=== PATIENT | male | born 1965 | race Caucasian/White ===

== ENCOUNTER 2018-07-30 08:04 | Emergency (ER) | payer BC, OTHER ==
[2018-07-30 08:19] VITALS: BP 136/96
--- NOTE | 2018-07-30 08:38 | UC ---
GI Bleed HPI - HPI Summary HPI Summary: rectal bleeding x 2 hrs sudden onset this morning, went to have BM this morning , suddenly felt something pooped in his rectal area with large amount of blood. denies any significant pain , still bleeding , history of hemorrhoid about a year ago, denies and fever, no chills, no abdominal pain no n/v/d/c, denies any fatigue , no lightheadedness - History Of Current Complaint Chief Complaint: UCGI Stated Complaint: RECTAL BLEED Time Seen by Provider: 07/30/18 08:15 Hx Obtained From: Patient Onset/Duration: Sudden Onset, Lasting Hours - 2, Still Present Timing: Constant Severity: Bright Red Blood per Rectum Severity Initially: Severe Severity Currently: Moderate Pain Intensity: 0 Associated Pain: None Character: Not Applicable Aggravating Factor(s): Bowel Movement Alleviating Factor(s): Other - none Associated Signs And Symptoms: Negative: Back Pain, Pallor, Dizziness, Weakness , Syncope, Constipation, Nausea, Rectal Pain, Bruising, Weight Loss, Recent Abnormal Coagulation Studies - Risk Factors GI Bleed Risk Factors: Hemorrhoid(s) - Allergies/Home medications Allergies/Adverse Reactions: Allergies Allergy/AdvReac Type Severity Reaction Status Date / Time morphine Allergy Vomiting Verified 07/30/18 08:16 Home Medications: Home Medications Acetaminophen TAB* [Tylenol TAB*] 650 mg PO Q4H PRN 07/30/18 [History Confirmed 07/30/18] PMH/Surg Hx/FS Hx/Imm Hx Previously Healthy: Yes Other History Of: Negative For: Anticoagulant Therapy - Surgical History Surgical History: Yes Surgery Procedure, Year, and Place: LITHOTRIPSY - Family History Known Family History: Negative: Diabetes - Social History Alcohol Use: None Substance Use Type: None Smoking Status (MU): Former Smoker Type: eCigarehazel Review of Systems All Other Systems Reviewed And Are Negative: Yes Constitutional: Positive: Negative Skin: Positive: Negative Is Patient Immunocompromised?: No Physical Exam Triage Information Reviewed: Yes Appearance: Well-Appearing, No Pain Distress, Well-Nourished Vital Signs: Initial Vital Signs Temp 99.0 F 07/30/18 08:09 Pulse 73 07/30/18 08:09 Resp 16 07/30/18 08:09 BP 136/96 07/30/18 08:09 Pulse Ox 98 07/30/18 08:09 Vital Signs Reviewed: Yes Eye Exam: Normal Eyes: Positive: Conjunctiva Clear ENT: Positive: Normal ENT inspection, Hearing grossly normal, Pharynx normal Neck: Positive: Supple, Nontender, No Lymphadenopathy Respiratory: Positive: Chest non-tender, Lungs clear, Normal breath sounds Cardiovascular: Positive: RRR, No Murmur, Pulses Normal Abdomen Description: Positive: Nontender, Soft Bowel Sounds: Positive: Present Musculoskeletal Exam: Normal Skin Exam: Normal UC Physical Exam Vital Signs On Initial Exam: Initial Vitals Temp Pulse Resp BP Pulse Ox 99.0 F 73 16 136/96 98 07/30/18 08:09 07/30/18 08:09 07/30/18 08:09 07/30/18 08:09 07/30/18 08:09 - Rectal Exam Rectal Exam: Non-tender, Bleeding, Hemorrhoids, Mass - rectal mass with large amount of blood, ? rectal prolaps / rectar ca, Other - no tenderness Bleed Course/Dx - Differential Dx/Diagnosis Provider Diagnosis: Rectal bleeding, Rectal mass Discharge - Sign-Out/Discharge Documenting (check all that apply): Patient Departure All imaging exams completed and their final reports reviewed: No Studies - Discharge Plan Condition: Stable Disposition: TRANS HIGHER LVL OF CARE FAC Patient Education Materials: Rectal Bleeding (ED), Rectal Prolapse (ED) Referrals: Partha Rothman MD [Primary Care Provider] - Additional Instructions: please go to [facility] ED for evaluation and tx - Billing Disposition and Condition Condition: STABLE Disposition: Trans Higher Lvl of Care Fac
== END 2018-07-30 08:35 | disposition short-term general hospital (02) ==
LOC: UCEAST 08:04
DX: K62.5 Hemorrhage of anus and rectum (principal); K62.89 Other specified diseases of anus and rectum; Z87.891 Personal history of nicotine dependence
CPT/HCPCS: 99212; G0463

== ENCOUNTER 2018-07-30 09:12 | Emergency (ER) | payer BC, OTHER ==
--- NOTE | 2018-07-30 09:32 | ED ---
GI/ HPI - HPI Summary HPI Summary: The patient is a 52 y/o M presenting to [facility] accompanied by partner with a chief complaint of sudden onset rectal bleeding and pressure this morning. He reports that he was getting ready for work this morning when he felt like he had to pass a BM. When he sat down, he felt a pressure as if something "popped, " and then he noticed bleeding from his rectum. The bleeding continued, and he presented to Urgent Care and was advised to come to the ED. In the ED, the rectum is still bleeding. The mild pain is currently rated 2/10 in severity. He additionally c/o dizziness and nausea that come in intermittent episodes. He denies abd pain. He notes that this occurred about two years ago, but there was less blood expelled, and the discomfort was different. He did not receive medical attention at that time. He states that he's had a few hemorrhoids that were not treated before. Hx of renal calculi. Surgical hx of lithotripsy. Former smoker, no EtOH, no substance use. - History of Current Complaint Chief Complaint: EDRectalPain Time Seen by Provider: 07/30/18 09:21 Stated Complaint: RECTAL BLEEDING RECTAL PROLAPSE, PER CC Hx Obtained From: Patient Onset/Duration: Started Hours Ago - this morning, Still Present Timing: Lasting Hours Severity: Mild Current Severity: Moderate Pain Intensity: 2 Location of Pain: Rectal Pain Characteristics: Pressure Associated Signs and Symptoms: Positive: Dizziness, Nausea, Rectal Pain. Negative: Abdominal Pain - Allergy/Home Medications Allergies/Adverse Reactions: Allergies Allergy/AdvReac Type Severity Reaction Status Date / Time morphine AdvReac Vomiting Verified 07/30/18 09:14 Home Medications: Home Medications NK [No Home Medications Reported] 07/30/18 [History Confirmed 07/30/18] PMH/Surg Hx/FS Hx/Imm Hx Endocrine/Hematology History: Denies: Hx Anticoagulant Therapy, Hx Diabetes Cardiovascular History: Denies: Hx Congestive Heart Failure, Hx Hypertension History: Reports: Hx Renal Disease - KIDNEY STONES - Surgical History Surgery Procedure, Year, and Place: LITHOTRIPSY Infectious Disease History: No Infectious Disease History: Denies: Traveled Outside the [place] in Last 30 Days - Family History Known Family History: Negative: Diabetes - Social History Alcohol Use: None Hx Substance Use: No Substance Use Type: Reports: None Hx Tobacco Use: Yes Smoking Status (MU): Former Smoker Type: eCigarettlaw Review of Systems Positive: Nausea, Other - rectal bleeding and pressure. Negative: Abdominal Pain Neurological: Other - dizziness All Other Systems Reviewed And Are Negative: Yes Physical Exam - Summary Physical Exam Summary: Appearance: Well-appearing, Well-nourished, lying in bed comfortably Skin: Warm, dry, no obvious rash Eyes: sclera anicteric, no conjunctival pallor ENT: mucous membranes moist, pharynx appears normal Neck: Supple, nontender Respiratory: Clear to auscultation, no signs of respiratory distress Cardiovascular: Normal S1, S2. No murmurs. Normal distal pulses in tibial and radial bilaterally. Abdomen: Soft, nontender, normal active bowel sounds present Musculoskeletal: Normal, Strength/ROM Intact Neurological: A&Ox3, awake and alert, mentation is normal, speech is fluent and appropriate Psychiatric: affect is normal, does not appear anxious or depressed Rectal Exam: A 3cm mass protruding from the rectum that is oozing blood is visualized. It does not appear to be a hemorrhoid or a rectal prolapse but is likely a tumor. Triage Information Reviewed: Yes Vital Signs On Initial Exam: Initial Vitals Temp Pulse Resp BP Pulse Ox 97.7 F 78 16 136/104 96 07/30/18 09:14 07/30/18 09:14 07/30/18 09:14 07/30/18 09:14 07/30/18 09:14 Vital Signs Reviewed: Yes Diagnostics - Vital Signs Vital Signs Temp Pulse Resp BP Pulse Ox 07/30/18 09:14 97.7 F 78 16 136/104 96 - Laboratory Result Diagrams: 07/30/18 09:37 07/30/18 09:37 Lab Statement: Any lab studies that have been ordered have been reviewed, and results considered in the medical decision making process. Re-Evaluation - Re-Evaluation First Eval Re-Evaluation Time: 10:48 Comment: I discussed the lab results with the patient. I also spoke with him concerning follow-up at Dr. Lima' office tomorrow as planned. GIGU Course/Dx - Course Course Of Treatment: The patient is a 52 y/o M presenting to [facility] accompanied by partner with a chief complaint of sudden onset rectal bleeding and pressure this morning after feeling like he had to have a BM, but heard a popping noise and felt rectal pressure upon sitting down. He then noticed racquel red blood that has been constantly present since onset. He additionally c/o dizziness and nausea that come in intermittent episodes. He denies abd pain. He notes that this occurred about two years ago with more mild symptoms but without medical treatment. Hx of hemorrhoids (untreated), renal calculi. Surgical hx of lithotripsy. Former smoker, no EtOH, no substance use. Upon physical exam, the patient exhibits a 3cm mass protruding from the rectum that is oozing blood and does not appear to be a hemorrhoid or rectal prolapse but is likely a tumor. Blood work reveals MCH of 32 and glucose of 113. I consulted with Dr. Lima, surgery, at 0933. He reports he will come see the patient in the ED. At 1040 in the ED, Dr. Lima notes that the patient would benefit most from a colonoscopy, and the mass found on the patient appears to be a polyp. He will see if his office can schedule the patient for an appointment. At 1047, Dr. Lima reports that the patient is scheduled for an appointment with his office tomorrow at 1130. The patient agrees with this plan and understands the need for return to the ED for any new or worsening symptoms. - Diagnoses Provider Diagnoses: Polyp of rectum - Physician Notifications Discussed Care Of Patient With: Brett Lima - surgery Time Discussed With Above Provider: 09:33 Instructed by Provider To: Other - I discussed the patient's case with Dr. Lima, and he agrees to see the patient in the ED after his case is finished. At 1040, Dr. Lima reports the patient has a polyp and needs a colonoscopy and removal of the polyp. He will see if he can schedule the patient for the exam. At 1047, Dr. Lima notes that his office was able to schedule the colonoscopy for tomorrow morning. Discharge - Sign-Out/Discharge Documenting (check all that apply): Patient Departure - Patient will be discharged home. Patient Received Moderate/Deep Sedation with Procedure: No - Discharge Plan Condition: Good Disposition: HOME Patient Education Materials: Colorectal Polyps (DC) Forms: *Work Release Referrals: Partha Rothman MD [Primary Care Provider] - Brett Lima MD [Medical Doctor] - 2 Days Additional Instructions: Dr. Lima is going to arrange for you to have a colonoscopy to have the polyp removed. The bleeding should stop over time today. Your blood work looked ok. RETURN TO THE EMERGENCY DEPARTMENT FOR ANY NEW OR WORSENING SYMPTOMS. - Billing Disposition and Condition Condition: GOOD Disposition: Home - Attestation Statements Document Initiated by Bala: Yes Documenting Scribe: Angelique Mancuso Provider For Whom Bala is Documenting (Include Credential): Dr. Joseph Rose MD Scribe Attestation: I, radhika Uriosteguied for Dr. Joseph Rose MD on 08/02/18 at 0413. Scribe Documentation Reviewed: Yes Provider Attestation: The documentation as recorded by the Angelique swan accurately reflects the service I personally performed and the decisions made by me, Dr. Joseph Rose MD Status of Scrmich Document: Viewed
[2018-07-30 09:53] LABS: ABS Basophils 0.1 10^3/ul (0-0.2); ABS Eosinophils 0.1 10^3/ul (0-0.6); ABS Lymphocytes 1.5 10^3/ul (1.0-4.8); ABS Monocytes 0.5 10^3/ul (0-0.8); ABS Neutrophils 3.5 10^3/ul (1.5-7.7); Eosinophil % 1.9 %; Hematocrit 45 % (42-52); Hemoglobin 15.4 g/dL (14.0-18.0); Lymphocyte % 26.6 %; Mean Corpuscular HGB Conc 34 g/dL (31-36); Mean Corpuscular Hemoglobin 32 pg (27-31); Mean Corpuscular Volume 92 fL (80-94); Mean Platelet Volume 7.8 fL (7.4-10.4); Nucleated Red Blood Cells % 0.1; Platelet Count 242 10^3/uL (150-450); Red Blood Count 4.88 10^6 /uL (4.18-5.48); Red Cell Distribution Width 13 % (10-15); White Blood Count 5.8 10^3/uL (3.5-10.8)
[2018-07-30 10:07] LABS: INR 0.84 (0.82-1.09)
[2018-07-30 10:14] LABS: BUN/Creatinine Ratio 15.4 (8-20); Potassium 4.4 mmol/L (3.5-5.0)
[2018-07-30 10:15] LABS: Albumin 4.5 g/dL (3.2-5.2); Calcium 9.4 mg/dL (8.6-10.3); EGFR African American 90.4 (>60); EGFR Non-African American 74.7 (>60); Globulin 2.3 g/dL (2-4); Total Bilirubin 0.4 mg/dL (0.2-1.0); Total Protein 6.8 g/dL (6.4-8.9)
[2018-07-30 10:55] VITALS: BP 122/88
--- NOTE | 2018-07-30 11:50 | CONS ---
CC: [facility] * SURGICAL CONSULTATION: DATE OF CONSULT: 07/30/18 LOCATION: In the emergency room. REASON FOR CONSULT: Rectal mass. HISTORY OF PRESENT ILLNESS: This is a 52-year-old male with a history of episode of rectal bleeding associated with a protruding mass through the anus that occurred 2 years ago. The patient reports that he had no insurance at that time and managed this by sitting in a tub and eventually, the mass disappeared and the bleeding stopped. This morning, he felt an urge to defecate , sat on the toilet, and passed blood both dark and bright red and felt a mass again protruding. He presented to the [facility] and then was transferred to [facility] Emergency Room, where he was evaluated by the staff. He was found to have an irregular protruding mass from the anus and therefore, surgical consultation was requested. The patient does not report feeling lightheaded or dizzy. He denies any pain. His appetite has been normal. He has no fevers, chills, weight loss. He normally has bowel movements daily that are typically formed. Aside from the blood per rectum 2 years ago, he has had no other issues. He has never had a colonoscopy. He denies any family history of colorectal cancer. PAST MEDICAL HISTORY: Significant for alcohol abuse. He states that he felt he was drinking to excess and stopped drinking 4 to 5 years ago. He denies any cardiovascular disease, pulmonary disease, kidney disease. Kidney stones bilaterally. PAST SURGICAL HISTORY: [place] lithotripsy [place] ESWL [place] [address] Montanez. MEDICATIONS: None. ALLERGIES: MORPHINE has caused nausea and vomiting. FAMILY HISTORY: Father of cirrhosis. 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 He has a history of tobacco use and alcohol use, but none currently. No drug use. REVIEW OF SYSTEMS: A 12-point review of systems negative, except for findings as above. PHYSICAL EXAM: He is a 5-feet 7-inch, 170-pound male who is sitting in the emergency room in no acute distress. His temperature is 97.7, blood pressure 135/92, pulse is 65, and respirations 16, O2 sat 97% on room air. Head is normocephalic and atraumatic. His sclerae are anicteric. His mucous membranes are moist. There is no otorrhea or rhinorrhea. His abdomen is nondistended. There is an umbilical hernia with incarcerated fat. It is soft and nontender. I palpate no masses. There is no hepatosplenomegaly. On his rectal examination , there was a protruding polypoid mass, perhaps 3 cm, which was not actively bleeding, was able to be reduced. He has external skin tags. Extremities are warm without cyanosis, clubbing, or edema. Skin, he has pigment changes over the chest which are similar to vitiligo. DIAGNOSTIC STUDIES/LAB DATA: White blood count 5.8, hemoglobin 15.4, hematocrit 45, platelets 242, differential was normal. Chemistry is notable for normal electrolytes, BUN 16, creatinine 1.04, glucose of 113. Total bili, AST, ALT, alk phos, albumin are all normal. There was no imaging. IMPRESSION: A 52-year-old male with history of rectal bleeding with episode 2 years ago, now presenting with same findings and prolapsed polyp, which was reduced. He does not require any emergent surgical intervention. PLAN/RECOMMENDATIONS: Discussed findings with the patient and the significant other, who accompanied him. My recommendation is that he be seen in [facility] office for followup. He will need excision of the polyp, but should also complete a colonoscopy. I also recommended that he reestablish with [facility], where he has been a patient before, though has not been seen there in many years. The patient stated his understanding and agreed with the plan. [id number] #: [id number] MTDD
== END 2018-07-30 10:54 | disposition home or self-care (01) ==
LOC: ED 09:12
DX: K62.1 Rectal polyp (principal); Z87.891 Personal history of nicotine dependence
CPT/HCPCS: 36415; 80053; 85025; 85610; 86850; 86900; 86901; 99282